=== PATIENT | male | born 1990 | race Caucasian/White ===

== ENCOUNTER 2022-03-25 15:46 | Emergency (ER) | payer MEDICAID ==
[~2022-03-25] VITALS: Ht 172.7 cm; Wt 63.5 kg
[2022-03-25 16:44] VITALS: BP_SYST 115
[2022-03-25] MEDS ORDERED: BICT1TAB PO ×3 (17:47→17:48)
[2022-03-25 17:54] VITALS: BP_SYST 115
== END 2022-03-25 17:54 | disposition home or self-care (01) ==
LOC: SED 15:46
DX: Z76.0 Encounter for issue of repeat prescription (principal); Z79.899 Other long term (current) drug therapy
CPT/HCPCS: 99281

== ENCOUNTER 2022-06-24 13:25 | Emergency (ER) | payer MEDICAID ==
[~2022-06-24] VITALS: Ht 172.7 cm; Wt 63.5 kg
[~2022-06-24 13:25] MED LIST: BICT1TAB PO
[2022-06-24 13:40] VITALS: BP_SYST 134
--- NOTE | 2022-06-24 13:55 | NUR ---
Placed in room 08 . Placed on wine steward, blood pressure machine and pulse oximeter. To gown for exam. Side rails up. Report given to SHRUTI GONSALES.
--- NOTE | 2022-06-24 13:59 | NUR ---
PATIENT WAS BROUGHT IN BY UNCLE C/O NEED FOR REFILL OF PRESCRIPTION BIKTARVY. DENIES OTHER MEDICAL OR SURGICAL HX. PATIENT'S UNCLE STATES THAT THE PATIENT WAS HOMELESS AND THAT HE HAD A NUMBER OF CUTS ON THE BOTTOM OF HIS FEET THAT THEY WERE CONCERNED COULD BECOME INFECTED. PATIENT IS EASILY DISTRACTED AND SLOW TO RESPOND. DENIES ALCOHOL OR SUBSTANCE ABUSE. CARE TO BE PROVIDED ORDERED BY PHYSICIAN.
--- NOTE | 2022-06-24 14:11 | NUR ---
ER Dr. LEMA at bedside examining patient.
--- NOTE | 2022-06-24 14:25 | NUR ---
PATIENT ELOPED BEFORE SIGNING DC PAPERWORK.
== END 2022-06-24 14:25 | disposition left against medical advice (07) ==
LOC: SED 13:25
DX: M79.674 Pain in right toe(s) (principal); Z79.899 Other long term (current) drug therapy
CPT/HCPCS: 99281